=== PATIENT | female | born 1995 | race Two or more races ===

== ENCOUNTER 2019-05-30 00:36 | Emergency (ER) | payer OTHER ==
[2019-05-30 00:43] VITALS: BP 125/90
[2019-05-30 01:02] LABS: ABSOLUTE BASOPHILS # (AUTO) 0.1 10^3/uL (0.0-0.2); ABSOLUTE EOSINOPHILS # (AUTO) 0.3 10^3/uL (0.0-0.6); ABSOLUTE LYMPHOCYTES (AUTO) 5.6 10^3/uL (0.5-4.7); ABSOLUTE MONOCYTES (AUTO) 0.9 10^3/uL (0.1-1.4); ABSOLUTE NEUT (AUTO) 5.4 10^3/uL (1.7-8.2); BASOPHILS % (AUTO) 1.1 % (0-2); EOSINOPHILS % (AUTO) 2.4 % (0-6); HEMATOCRIT 38.4 % (36.0-47.0); HEMOGLOBIN 13.4 g/dL (12.0-15.5); LYMPHOCYTES % (AUTO) 45.3 % (13-45); MEAN CORPUSCULAR HEMOGLOBIN 27.9 pg (27.0-33.4); MEAN CORPUSCULAR HGB CONC 34.9 g/dL (32.0-36.0); MEAN CORPUSCULAR VOLUME 80 fl (80-97); PLATELET COUNT 437 10^3/uL (150-450); SEGMENTED NEUTROPHILS % (AUTO) 44.2 % (42-78); TOTAL CELLS COUNTED % (AUTO) 100 %; WHITE BLOOD COUNT 12.3 10^3/uL (4.0-10.5)
[2019-05-30 01:04] LABS: APPEARANCE,URINE CLEAR; BILIRUBIN,URINE NEGATIVE (NEGATIVE); COLOR,URINE YELLOW; GLUCOSE, URINE NEGATIVE (NEGATIVE); KETONES,URINE NEGATIVE (NEGATIVE); LEUKOCYTE ESTERASE,URINE NEGATIVE (NEGATIVE); NITRITE,URINE NEGATIVE (NEGATIVE); PROTEIN,URINE NEGATIVE (NEGATIVE); URINE SPECIFIC GRAVITY 1.018; UROBILINOGEN,URINE NEGATIVE mg/dL (<2.0)
[2019-05-30 01:25] LABS: ALBUMIN 5.2 g/dL (3.5-5.0); ALKALINE PHOSPHATASE 71 U/L (38-126); ANION GAP 16 (5-19); ASPARTATE AMINO TRANSFERASE 37 U/L (14-36); BILIRUBIN,DIRECT 0.1 mg/dL (0.0-0.4); BILIRUBIN,TOTAL 0.5 mg/dL (0.2-1.3); BLOOD UREA NITROGEN 15 mg/dL (7-20); CALCIUM 10.4 mg/dL (8.4-10.2); CARBON DIOXIDE 23 mmol/L (22-30); CHLORIDE 105 mmol/L (98-107); GLUCOSE 98 mg/dL (75-110); POTASSIUM 4.5 mmol/L (3.6-5.0); TOTAL PROTEIN 8.7 g/dL (6.3-8.2)
--- NOTE | 2019-05-30 03:16 | ER Document Report ---
ED GI/ - General Chief Complaint: Lower Abdominal Pain Stated Complaint: ABDOMINAL PAIN Time Seen by Provider: 05/30/19 03:15 Mode of Arrival: Ambulatory Information source: Patient - Related Data Allergies/Adverse Reactions: No Known Allergies Allergy (Unverified 05/30/19 00:36) Past Medical History - Social History Smoking Status: Unknown if Ever Smoked Patient has suicidal ideation: No Patient has homicidal ideation: No Physical Exam - Vital signs Vitals: Temp Pulse Resp BP Pulse Ox 98.1 F 128 H 20 125/90 H 100 05/30/19 00:41 05/30/19 00:41 05/30/19 00:41 05/30/19 00:41 05/30/19 00:41 Course - Vital Signs Vital signs: Temp Pulse Resp BP Pulse Ox 98.1 F 128 H 20 125/90 H 100 05/30/19 00:41 05/30/19 00:41 05/30/19 00:41 05/30/19 00:41 05/30/19 00:41 - Laboratory Result Diagrams: 05/30/19 00:48 05/30/19 00:48 Laboratory results interpreted by me: 05/30/19 05/30/19 05/30/19 00:48 00:48 00:48 WBC 12.3 H Lymph % (Auto) 45.3 H Absolute Lymphs (auto) 5.6 H Calcium 10.4 H AST 37 H Total Protein 8.7 H Albumin 5.2 H Urine Blood SMALL H Discharge - Discharge Disposition: ELOPED
--- NOTE | 2019-05-30 05:18 | ER Document Report ---
Doctor's Note Notes: 05/30/19 3267 Patient had eloped from the room prior to me seeing her and interviewing her.
== END 2019-05-30 03:24 | disposition left against medical advice (07) ==
LOC: ER 00:36
DX: Z53.21 Procedure and treatment not carried out due to patient leaving prior to being seen by health care provider (principal)
CPT/HCPCS: 36415; 80053; 81001; 81025; 83690; 85025; 99281

== ENCOUNTER 2019-06-30 22:03 | Emergency (ER) | payer OTHER ==
[2019-06-30 23:06] VITALS: BP 119/76
--- NOTE | 2019-06-30 23:37 | ER Document Report ---
ED Medical Screen (RME) - General Chief Complaint: Abdominal Pain Stated Complaint: ABDOMINAL PAIN Time Seen by Provider: 06/30/19 23:20 Mode of Arrival: Ambulatory Information source: Patient Notes: Otherwise healthy 23-year-old female presenting to the emergency department chief complaint of low abdominal pain and pelvic pain. Patient reports pain ongoing for 1 to 2 days. She does report some yellow vaginal discharge but she states that that has now resolved. Denies any fevers, nausea, vomiting, diarrhea or dysuria. Exam: Abdomen minimally tender with palpation. I have greeted and performed a rapid initial assessment of this patient. A comprehensive ED assessment and evaluation of the patient, analysis of test results and completion of the medical decision making process will be conducted by additional ED providers. I have specifically instructed the patient or family members with the patient to immediately return to any nursing staff should anything change in the patient's condition or with their chief complaint. TRAVEL OUTSIDE OF THE [place] IN LAST 30 DAYS: No - Related Data Allergies/Adverse Reactions: No Known Allergies Allergy (Verified 06/30/19 23:11) Home Medications: propranol/ busparin Past Medical History - Social History Chew tobacco use (# tins/day): No Frequency of alcohol use: Social Drug Abuse: None Physical Exam - Vital signs Vitals: Temp Pulse Resp BP Pulse Ox 99.0 F 102 H 20 119/76 99 06/30/19 22:22 06/30/19 22:22 06/30/19 22:22 06/30/19 22:22 06/30/19 22:22 Course - Vital Signs Vital signs: Temp Pulse Resp BP Pulse Ox 99.0 F 102 H 20 119/76 99 06/30/19 22:22 06/30/19 22:22 06/30/19 22:22 06/30/19 22:22 06/30/19 22:22 - Laboratory Result Diagrams: 06/30/19 23:43 06/30/19 23:43
[2019-07-01 00:01] LABS: ABSOLUTE BASOPHILS # (AUTO) 0.2 10^3/uL (0.0-0.2); ABSOLUTE EOSINOPHILS # (AUTO) 0.3 10^3/uL (0.0-0.6); ABSOLUTE LYMPHOCYTES (AUTO) 3.4 10^3/uL (0.5-4.7); ABSOLUTE MONOCYTES (AUTO) 0.7 10^3/uL (0.1-1.4); ABSOLUTE NEUT (AUTO) 6.9 10^3/uL (1.7-8.2); BASOPHILS % (AUTO) 1.4 % (0-2); EOSINOPHILS % (AUTO) 2.5 % (0-6); HEMATOCRIT 36.4 % (36.0-47.0); HEMOGLOBIN 12.9 g/dL (12.0-15.5); LYMPHOCYTES % (AUTO) 29.5 % (13-45); MEAN CORPUSCULAR HGB CONC 35.3 g/dL (32.0-36.0); MEAN CORPUSCULAR VOLUME 80 fl (80-97); MONOCYTES % (AUTO) 6.3 % (3-13); PLATELET COUNT 391 10^3/uL (150-450); RED BLOOD COUNT 4.59 10^6/uL (3.72-5.28); RED CELL DISTRIBUTION WIDTH 13.3 % (11.5-14.0); SEGMENTED NEUTROPHILS % (AUTO) 60.3 % (42-78); TOTAL CELLS COUNTED % (AUTO) 100 %; WHITE BLOOD COUNT 11.5 10^3/uL (4.0-10.5)
[2019-07-01 00:19] LABS: ALKALINE PHOSPHATASE 75 U/L (38-126); ANION GAP 15 (5-19); ASPARTATE AMINO TRANSFERASE 23 U/L (14-36); BILIRUBIN,DIRECT 0.2 mg/dL (0.0-0.4); BILIRUBIN,TOTAL 0.5 mg/dL (0.2-1.3); BLOOD UREA NITROGEN 11 mg/dL (7-20); CALCIUM 9.9 mg/dL (8.4-10.2); CARBON DIOXIDE 25 mmol/L (22-30); CHLORIDE 100 mmol/L (98-107); GLUCOSE 90 mg/dL (75-110); POTASSIUM 3.9 mmol/L (3.6-5.0); TOTAL PROTEIN 8.2 g/dL (6.3-8.2)
[2019-07-01 00:21] LABS: APPEARANCE,URINE SLIGHTLY-CLOUDY; BILIRUBIN,URINE NEGATIVE (NEGATIVE); COLOR,URINE YELLOW; GLUCOSE, URINE NEGATIVE (NEGATIVE); KETONES,URINE NEGATIVE (NEGATIVE); LEUKOCYTE ESTERASE,URINE NEGATIVE (NEGATIVE); NITRITE,URINE NEGATIVE (NEGATIVE); PROTEIN,URINE NEGATIVE (NEGATIVE); UROBILINOGEN,URINE NEGATIVE mg/dL (<2.0)
--- NOTE | 2019-07-01 00:43 | RADIOLOGY REPORT (SQ) ---
EXAM DESCRIPTION: US PELVIS TRANSVAGINAL COMPLETED DATE/TME: 06/30/2019 23:35 CLINICAL HISTORY: 23 years, Female, pelvic pain COMPARISON: None. TECHNIQUE: Transvaginal pelvic ultrasound with grayscale and color images. LIMITATIONS: None. FINDINGS: The uterus measures 8.8 x 4.7 x 3.8 cm. The endometrium is normal in thickness measuring 1 cm. The cervix measures 4 cm in length. Both ovaries demonstrate normal flow. The right ovary measures 2.4 x 2.1 x 2.2 cm. The left ovary measures 4.2 x 2.0 x 2.4 cm. There is a left ovarian hemorrhagic cyst that measures 2.8 x 1.6 x 1.5 cm. There is a mild amount of free fluid within the pelvis. IMPRESSION: Left ovarian hemorrhagic cyst. No evidence of ovarian torsion. Mild amount of free fluid within the pelvis. copyright 2010 [employer]- All Rights Reserved
[2019-07-01] MEDS ORDERED: KETOROLAC TROMETHAMINE INJ/PF 30 MG/1 ML SDV IM ONE (02:51)
--- NOTE | 2019-07-01 02:55 | ER Document Report ---
ED GI/ - General Chief Complaint: Abdominal Pain Stated Complaint: ABDOMINAL PAIN Time Seen by Provider: 06/30/19 23:20 Primary Care Provider: [facility] [Provider Group] - Follow up as needed COURT VAZQUEZ MD [EMERITUS] - Follow up as needed Mode of Arrival: Ambulatory Notes: 23-year-old female presented to ED for complaint lower abdominal/pelvic pain. She states is been going on for 1 to 2 days. She states she did have some yellow vaginal discharge but that is resolved now. She denies any fevers nausea vomiting diarrhea or any difficulty urinating. She states she did have an ovarian cyst last month during her menstrual cycle and she has 1 again. TRAVEL OUTSIDE OF THE [place] IN LAST 30 DAYS: No - HPI Patient complains to provider of: Pelvic pain, Vaginal discharge Onset: Other - 1 to 2 days Timing/Duration: Persistent Quality of pain: Sharp Severity at maximum: Moderate Severity in ED: Moderate Pain Level: 3 Location: Pelvis Vaginal bleeding (Compared to normal period): None Associated symptoms: Vaginal discharge - She states this is resolved, Other - Left pelvic pain Exacerbated by: Walking Relieved by: Denies Recently seen / treated by doctor: Yes - Related Data Allergies/Adverse Reactions: No Known Allergies Allergy (Verified 06/30/19 23:11) Home Medications: propranol/ busparin Past Medical History - General Information source: Patient - Social History Smoking Status: Never Smoker Chew tobacco use (# tins/day): No Frequency of alcohol use: Social Drug Abuse: None Lives with: Family Family History: Reviewed & Not Pertinent Patient has suicidal ideation: No Patient has homicidal ideation: No - Past Medical History Cardiac Medical History: Reports: None Pulmonary Medical History: Reports: None EENT Medical History: Reports: None Neurological Medical History: Reports: None Endocrine Medical History: Reports: None Renal/ Medical History: Reports: Hx Ovarian Cysts Malignancy Medical History: Reports: None GI Medical History: Reports: None Musculoskeletal Medical History: Reports None Skin Medical History: Reports None Psychiatric Medical History: Reports: None Traumatic Medical History: Reports: None Infectious Medical History: Reports: None Surgical Hx: Negative Past Surgical History: Reports: None - Immunizations Immunizations up to date: Yes Review of Systems - Review of Systems Constitutional: No symptoms reported EENT: No symptoms reported Cardiovascular: No symptoms reported Respiratory: No symptoms reported Gastrointestinal: No symptoms reported Genitourinary: No symptoms reported Female Genitourinary: Vaginal discharge, Other - Left pelvic pain Musculoskeletal: No symptoms reported Skin: No symptoms reported Hematologic/Lymphatic: No symptoms reported Neurological/Psychological: No symptoms reported Physical Exam - Vital signs Vitals: Temp Pulse Resp BP Pulse Ox 99.0 F 102 H 20 119/76 99 06/30/19 22:22 06/30/19 22:22 06/30/19 22:22 06/30/19 22:22 06/30/19 22:22 Interpretation: Normal - General General appearance: Appears well, Alert - HEENT Head: Normocephalic, Atraumatic Eyes: Normal Pupils: PERRL - Respiratory Respiratory status: No respiratory distress Chest status: Nontender Breath sounds: Normal Chest palpation: Normal - Cardiovascular Rhythm: Regular Heart sounds: Normal auscultation Murmur: No - Abdominal Inspection: Normal Distension: No distension Bowel sounds: Normal Tenderness: Tender - Left pelvic pain Organomegaly: No organomegaly - Genitourinary Notes: Patient refused pelvic exam stated she would go to her [facility] she did not want a pelvic exam in the emergency room. I explained to her with her yellow discharge reevaluation do pelvic exam and swabs. She states no she was not can have a pelvic exam in the emergency room and get into her [facility] and she will get that there. - Back Back: Normal, Nontender - Extremities General upper extremity: Normal inspection, Nontender, Normal color, Normal ROM, Normal temperature General lower extremity: Normal inspection, Nontender, Normal color, Normal ROM, Normal temperature, Normal weight bearing. No: Corwin's sign - Neurological Neuro grossly intact: Yes Cognition: Normal Orientation: AAOx4 [place] Coma Scale Eye Opening: Spontaneous [place] Coma Scale Verbal: Oriented Jonathan Coma Scale Motor: Obeys Commands Jonathan Coma Scale Total: 15 Speech: Normal Motor strength normal: LUE, RUE, LLE, RLE Sensory: Normal - Psychological Associated symptoms: Normal affect, Normal mood - Skin Skin Temperature: Warm Skin Moisture: Dry Skin Color: Normal Course - Re-evaluation Re-evalutation: 07/01/19 03:20 Patient refused pelvic exam even though she had vaginal discharge a couple days ago. She states the discharge is gone and she does not want a pelvic exam in the emergency room. She states all the pain is at the left ovary where her cyst is on the ultrasound. She refused multiple times to have a pelvic exam. She was treated with Toradol for her pain in her left ovarian cyst area. - Vital Signs Vital signs: Temp Pulse Resp BP Pulse Ox 99.0 F 102 H 20 119/76 99 06/30/19 22:22 06/30/19 22:22 06/30/19 22:22 06/30/19 22:22 06/30/19 22:22 - Laboratory Result Diagrams: 06/30/19 23:43 06/30/19 23:43 Laboratory results interpreted by me: 06/30/19 23:43 WBC 11.5 H - Diagnostic Test Radiology reviewed: Image reviewed, Reports reviewed Discharge - Discharge Clinical Impression: Pelvic pain, Left ovarian cyst Condition: Stable Disposition: HOME, SELF-CARE Additional Instructions: PELVIC PAIN: There are many causes of pain in the pelvic area. The cause could be the tubes, ovaries, uterus, intestines, appendix, pelvic muscles and connective tissue, or the urinary tract. The cause of your pelvic pain is not clear. However, it seems safe to treat you outside the hospital. If the pain sounds like a temporary problem, we sometimes wait to see if it goes away. Other patients may need additional tests, such as pelvic ultrasound or cultures. Conditions may change. Call us or come back for reexamination if any problems occur, such as: (1) Pain that becomes more severe, steady, or becomes concentrated in one specific area. Also, pain that is more severe with movement or coughing. (2) Vomiting that persists or becomes more frequent. (3) Blood in the vomitus, urine, or bowel movements. Blood in the stool may have a tarry or black appearance. (4) Shaking chills or fever greater than 100 degrees. (5) The abdomen becomes more distended or swollen. (6) Bowel movements cease. (7) Heavy vaginal bleeding. You have refused the pelvic exam and pelvic swabs for GC and chlamydia and wet mount. You stated you would follow-up with your [facility] within the next 24 to 48 hours to get the swabs as you did not want to have this done in the emergency room. Ovarian Cyst Your examination shows the presence of an ovarian cyst. This is a ball of fluid attached to the ovary. Ovarian cysts in women of child-bearing age are usually innocent. However, the cyst may cause pain when it grows or bursts. An innocent ovarian cyst will usually go away by itself. When the cyst becomes painful, you should rest. Pain medication may be required. Some women find a hot water bottle soothing. The pain usually resolves within one or two days. After menopause, an ovarian cyst may mean a tumor, and requires more aggressive evaluation -- usually surgery is recommended to remove or biopsy the cyst. A very large cyst requires evaluation at any age. Most cysts (even the innocent ones) require follow-up examination. Call the doctor or return at any time if the pain increases significantly, if you become faint, or if you experience vaginal bleeding. TORADOL INJECTION: You have been given an injection of ketorolac tromethamine (Toradol). This is an excellent, safe drug for pain control. It also has potent antiinflammatory action. You should have significant pain relief within about one hour. Toradol is not addicting and is non-sedating. It does not interfere with driving or work. Call or return if you develop itching, hives, shortness of breath, or rash. FOLLOW-UP CARE: If you have been referred to a physician for follow-up care, call the physici ans office for an appointment as you were instructed or within the next two days. If you experience worsening or a significant change in your symptoms, notify the physician immediately or return to the Emergency Department at any time for re-evaluation. Referrals: [facility] [Provider Group] - Follow up as needed COURT VAZQUEZ MD [EMERITUS] - Follow up as needed
== END 2019-07-01 03:49 | disposition home or self-care (01) ==
LOC: ER 22:03
DX: N83.202 Unspecified ovarian cyst, left side (principal); R10.2 Pelvic and perineal pain; Z79.899 Other long term (current) drug therapy
CPT/HCPCS: 99284; 96372; 36415; 84703; 85025; 80053; 81001; 76830; 93976; J1885

== ENCOUNTER 2019-12-08 00:52 | Emergency (ER) | payer OTHER ==
[2019-12-08] MEDS ORDERED: ONDANSETRON 4 MG TAB.RAPDIS PO ONE (01:05)
--- NOTE | 2019-12-08 01:06 | ER Document Report ---
ED Medical Screen (RME) - General Chief Complaint: Abdominal Pain Stated Complaint: ABDOMINAL PAIN Time Seen by Provider: 12/08/19 01:03 Mode of Arrival: Ambulatory Information source: Patient Notes: Otherwise healthy 24-year-old female presenting to the emergency department 2- day history of lower abdominal pain. Patient reports pain in the middle and left lower quadrants. She does have a history of ovarian cyst, states this feels similar. She states the pain is coming and going and has associated nausea without vomiting, diarrhea, fever, dysuria or abnormal vaginal discharge. No acute distress noted, tenderness to the left lower quadrant. I have greeted and performed a rapid initial assessment of this patient. A comprehensive ED assessment and evaluation of the patient, analysis of test results and completion of the medical decision making process will be conducted by additional ED providers. I have specifically instructed the patient or family members with the patient to immediately return to any nursing staff should anything change in the patient's condition or with their chief complaint. TRAVEL OUTSIDE OF THE [place] IN LAST 30 DAYS: No - Related Data Allergies/Adverse Reactions: No Known Allergies Allergy (Verified 06/30/19 23:11) Past Medical History Renal/ Medical History: Reports: Hx Ovarian Cysts - Immunizations Immunizations up to date: Yes Physical Exam - Vital signs Vitals: Temp Pulse Resp BP Pulse Ox 98.8 F 97 20 135/79 H 98 12/08/19 00:59 12/08/19 00:59 12/08/19 00:59 12/08/19 00:59 12/08/19 00:59 Course - Vital Signs Vital signs: Temp Pulse Resp BP Pulse Ox 98.8 F 97 20 135/79 H 98 12/08/19 01:02 12/08/19 00:59 12/08/19 00:59 12/08/19 00:59 12/08/19 00:59
[2019-12-08 01:26] LABS: ABSOLUTE BASOPHILS # (AUTO) 0.1 10^3/uL (0.0-0.2); ABSOLUTE EOSINOPHILS # (AUTO) 0.3 10^3/uL (0.0-0.6); ABSOLUTE LYMPHOCYTES (AUTO) 4.3 10^3/uL (0.5-4.7); ABSOLUTE NEUT (AUTO) 7.8 10^3/uL (1.7-8.2); BASOPHILS % (AUTO) 0.6 % (0-2); EOSINOPHILS % (AUTO) 2.3 % (0-6); HEMATOCRIT 35.6 % (36.0-47.0); HEMOGLOBIN 12.6 g/dL (12.0-15.5); LYMPHOCYTES % (AUTO) 32.1 % (13-45); MEAN CORPUSCULAR HEMOGLOBIN 28.2 pg (27.0-33.4); MEAN CORPUSCULAR HGB CONC 35.3 g/dL (32.0-36.0); MEAN CORPUSCULAR VOLUME 80 fl (80-97); MONOCYTES % (AUTO) 7.5 % (3-13); PLATELET COUNT 413 10^3/uL (150-450); RED BLOOD COUNT 4.45 10^6/uL (3.72-5.28); RED CELL DISTRIBUTION WIDTH 12.8 % (11.5-14.0); SEGMENTED NEUTROPHILS % (AUTO) 57.5 % (42-78); TOTAL CELLS COUNTED % (AUTO) 100 %; WHITE BLOOD COUNT 13.6 10^3/uL (4.0-10.5)
[2019-12-08 01:30] LABS: APPEARANCE,URINE CLEAR; BILIRUBIN,URINE NEGATIVE (NEGATIVE); COLOR,URINE COLORLESS; GLUCOSE, URINE NEGATIVE (NEGATIVE); KETONES,URINE NEGATIVE (NEGATIVE); LEUKOCYTE ESTERASE,URINE NEGATIVE (NEGATIVE); NITRITE,URINE NEGATIVE (NEGATIVE); PROTEIN,URINE NEGATIVE (NEGATIVE); URINE SPECIFIC GRAVITY 1.004; UROBILINOGEN,URINE NEGATIVE mg/dL (<2.0)
[2019-12-08 01:43] LABS: ALBUMIN 4.7 g/dL (3.5-5.0); ALKALINE PHOSPHATASE 71 U/L (38-126); ANION GAP 9 (5-19); ASPARTATE AMINO TRANSFERASE 24 U/L (14-36); BILIRUBIN,TOTAL 0.3 mg/dL (0.2-1.3); BLOOD UREA NITROGEN 13 mg/dL (7-20); CALCIUM 10.2 mg/dL (8.4-10.2); CARBON DIOXIDE 24 mmol/L (22-30); CHLORIDE 104 mmol/L (98-107); GLUCOSE 97 mg/dL (75-110); TOTAL PROTEIN 7.9 g/dL (6.3-8.2)
--- NOTE | 2019-12-08 02:09 | ER Document Report ---
ED GI/ - General Chief Complaint: Abdominal Pain Stated Complaint: ABDOMINAL PAIN Time Seen by Provider: 12/08/19 01:03 Mode of Arrival: Ambulatory Notes: Patient is a 24-year-old female who comes emergency department for chief complaint of left lower abdominal/pelvic pain. She states that for the past 3 days she has felt some intermittent pain but about 930 tonight she felt sharp throbbing pain which was significantly worse and she became concerned. She has been taking Advil for the pain with good results. She denies nausea, vomiting, vaginal bleeding or discharge, dysuria, flank pain, fever/chills, injury. She is sexually active with her . She denies concerns about STD. She states she has had ovarian cysts in the past including rupturing and hemorrhagic cysts and this feels similar. She denies any surgeries or daily medications at [facility] for anxiety. She denies any other medical history. TRAVEL OUTSIDE OF THE [place] IN LAST 30 DAYS: No - Related Data Allergies/Adverse Reactions: No Known Allergies Allergy (Verified 06/30/19 23:11) Past Medical History - General Information source: Patient - Social History Smoking Status: Current Every Day Smoker Family History: Reviewed & Not Pertinent Patient has homicidal ideation: No Renal/ Medical History: Reports: Hx Ovarian Cysts - Immunizations Immunizations up to date: Yes Review of Systems - Review of Systems Constitutional: No symptoms reported EENT: No symptoms reported Cardiovascular: No symptoms reported Respiratory: No symptoms reported Gastrointestinal: See HPI Genitourinary: No symptoms reported Female Genitourinary: See HPI Musculoskeletal: No symptoms reported Skin: No symptoms reported Hematologic/Lymphatic: No symptoms reported Neurological/Psychological: No symptoms reported Physical Exam - Vital signs Vitals: Temp Pulse Resp BP Pulse Ox 98.8 F 97 20 135/79 H 98 12/08/19 00:59 12/08/19 00:59 12/08/19 00:59 12/08/19 00:59 12/08/19 00:59 - Notes Notes: GENERAL: Alert, interacts well. No acute distress. HEAD: Normocephalic, atraumatic. EYES: Pupils equal, round, and reactive to light. Extraocular movements intact. ENT: Oral mucosa moist, tongue midline. Oropharynx unremarkable. Airway patent. LUNGS: Clear to auscultation bilaterally, no wheezes, rales, or rhonchi. No respiratory distress. Non-tender chest wall. HEART: Regular rate and rhythm. No murmur ABDOMEN: Soft, non-tender. Non-distended. Bowel sounds present in all 4 quadrants. GENITOURINARY: Deferred EXTREMITIES: Moves all 4 extremities spontaneously. No edema, normal radial and dorsalis pedis pulses bilaterally. No cyanosis. BACK: no cervical, thoracic, lumbar midline tenderness. No saddle anesthesia, normal distal neurovascular exam. Moves all extremities in full range of motion. NEUROLOGICAL: Alert and oriented x3. Normal speech. Cranial nerves II through XII grossly intact. Strength 5/5 in all extremities. PSYCH: Normal affect, normal mood. SKIN: Warm, dry, normal turgor. No rashes or lesions noted. Course - Re-evaluation Re-evalutation: Patient states now her pain which was sharp earlier has completely resolved. CBC unremarkable, chemistry unremarkable, urinalysis unremarkable, negative. Ultrasound from triage showing small amount of free fluid but no acute findings otherwise. Nils with patient. Based on her sharp pain which is now resolved, free fluid on ultrasound, negative work-up otherwise I feel it is likely that patient did have a ruptured ovarian cyst. She has no bleeding, abdominal pain, or any current symptoms. Patient is stable for discharge with follow-up with [facility]NIC[facility] which were discussed, discussed return precautions. Patient states understanding and agreement with plan. - Vital Signs Vital signs: Temp Pulse Resp BP Pulse Ox 98.3 F 88 14 112/73 98 12/08/19 02:27 12/08/19 02:27 12/08/19 02:27 12/08/19 02:27 12/08/19 02:27 - Laboratory Result Diagrams: 12/08/19 01:09 12/08/19 01:09 Laboratory results interpreted by me: 12/08/19 12/08/19 01:09 01:09 WBC 13.6 H Hct 35.6 L Sodium 136.9 L Discharge - Discharge Clinical Impression: Left lower quadrant pain Condition: Stable Disposition: HOME, SELF-CARE Additional Instructions: Your ultrasound does show some free fluid, I suspect that you have ruptured an ovarian cyst. Symptoms from this should simply resolve. You can take 600 mg of ibuprofen/Advil along with 1000 mg of Tylenol every 6 hours if needed for the pain. Follow-up with [facility]NIC[facility] referral routinely. Return if you worsen including severe worsening pain, vomiting, fever, or any other concerning symptoms. Forms: Return to Work Referrals: [facility] [Provider Group] - Follow up as needed
--- NOTE | 2019-12-08 02:11 | RADIOLOGY REPORT (SQ) ---
EXAM DESCRIPTION: US PELVIS TRANSVAGINAL COMPLETED DATE/TME: 12/08/2019 01:05 CLINICAL HISTORY: 24 years Female, eval for ovarian cysts Comparison:Jul 01 2019 Technique: Transvaginal. LIMITATIONS: None. FINDINGS: 7-cm uterus, 0.6-cm endometrial stripe thickness, 3-cm right ovary, and 3-cm left ovary appear normal in size, shape, echotexture, and vascularity. Small free pelvic fluid. IMPRESSION: Small free fluid. Else, unremarkable.
[2019-12-08 02:29] VITALS: BP 112/73
== END 2019-12-08 02:29 | disposition home or self-care (01) ==
LOC: ER 00:52
DX: R10.32 Left lower quadrant pain (principal); R10.2 Pelvic and perineal pain; Z79.899 Other long term (current) drug therapy; F17.200 Nicotine dependence, unspecified, uncomplicated
CPT/HCPCS: 99284; 36415; 83690; 85025; 81025; 80053; 81001; 76830; 93976; S0119

== ENCOUNTER 2020-02-21 17:41 | Emergency (ER) | payer OTHER ==
[2020-02-21] MEDS ORDERED: ACETAMINOPHEN 325 MG TABLET PO ONE (17:56)
--- NOTE | 2020-02-21 17:58 | ER Document Report ---
ED Medical Screen (RME) - General Chief Complaint: Abdominal Pain Stated Complaint: ABDOMINAL PAIN/ Time Seen by Provider: 02/21/20 17:52 Mode of Arrival: Ambulatory Information source: Patient Notes: HPI; 24-year-old female 2 para 1 presents to the emergency room complaining of abdominal pain that started earlier today. Patient states did a home test 3 days ago that was positive. Denies any care. Denies nausea, vomiting, no medications. Denies any vaginal bleeding. Vaginal discharge. PE: Alert and oriented x3. Lungs: Clear to auscultation without rales, rhonchi, wheezes. Heart: Regular rate and rhythm without murmurs, rubs, gallops. I have greeted and performed a rapid initial assessment of this patient. A comprehensive ED assessment and evaluation of the patient, analysis of test results and completion of the medical decision making process will be conducted by additional ED providers. I have specifically instructed the patient or f amily members with the patient to immediately return to any nursing staff should anything change in the patient's condition or with their chief complaint. TRAVEL OUTSIDE OF THE [place] IN LAST 30 DAYS: No - Related Data Allergies/Adverse Reactions: No Known Allergies Allergy (Verified 02/21/20 17:54) Past Medical History Renal/ Medical History: Reports: Hx Ovarian Cysts - Immunizations Immunizations up to date: Yes
[2020-02-21 18:22] LABS: ABSOLUTE EOSINOPHILS # (AUTO) 0.3 10^3/uL (0.0-0.6); HEMOGLOBIN 12.8 g/dL (12.0-15.5); TOTAL CELLS COUNTED % (AUTO) 100 %
[2020-02-21 18:26] LABS: ABSOLUTE BASOPHILS # (AUTO) 0.1 10^3/uL (0.0-0.2); ABSOLUTE LYMPHOCYTES (AUTO) 3.6 10^3/uL (0.5-4.7); ABSOLUTE NEUT (AUTO) 6.9 10^3/uL (1.7-8.2); BASOPHILS % (AUTO) 1.2 % (0-2); EOSINOPHILS % (AUTO) 2.8 % (0-6); MEAN CORPUSCULAR HEMOGLOBIN 27.9 pg (27.0-33.4); MEAN CORPUSCULAR HGB CONC 35.4 g/dL (32.0-36.0); MEAN CORPUSCULAR VOLUME 79 fl (80-97); MONOCYTES % (AUTO) 8.3 % (3-13); PLATELET COUNT 419 10^3/uL (150-450); RED BLOOD COUNT 4.58 10^6/uL (3.72-5.28); RED CELL DISTRIBUTION WIDTH 13.4 % (11.5-14.0); SEGMENTED NEUTROPHILS % (AUTO) 57.7 % (42-78); WHITE BLOOD COUNT 11.9 10^3/uL (4.0-10.5)
[2020-02-21 18:28] LABS: APPEARANCE,URINE CLEAR; BILIRUBIN,URINE NEGATIVE (NEGATIVE); COLOR,URINE STRAW; GLUCOSE, URINE NEGATIVE (NEGATIVE); KETONES,URINE NEGATIVE (NEGATIVE); LEUKOCYTE ESTERASE,URINE NEGATIVE (NEGATIVE); NITRITE,URINE NEGATIVE (NEGATIVE); PROTEIN,URINE NEGATIVE (NEGATIVE); URINE SPECIFIC GRAVITY 1.009; UROBILINOGEN,URINE NEGATIVE mg/dL (<2.0)
[2020-02-21 18:42] LABS: ALBUMIN 4.9 g/dL (3.5-5.0); ALKALINE PHOSPHATASE 63 U/L (38-126); ANION GAP 10 (5-19); ASPARTATE AMINO TRANSFERASE 22 U/L (14-36); BILIRUBIN,TOTAL 0.5 mg/dL (0.2-1.3); BLOOD UREA NITROGEN 12 mg/dL (7-20); CALCIUM 10.1 mg/dL (8.4-10.2); CARBON DIOXIDE 26 mmol/L (22-30); CHLORIDE 101 mmol/L (98-107); GLUCOSE 94 mg/dL (75-110); POTASSIUM 4.1 mmol/L (3.6-5.0); TOTAL PROTEIN 8.2 g/dL (6.3-8.2)
--- NOTE | 2020-02-21 19:27 | RADIOLOGY REPORT (SQ) ---
EXAM DESCRIPTION: U/S OB TRANSVAG W/DOPPLER IMAGES COMPLETED DATE/TIME: 02/21/2020 6:59 pm REASON FOR STUDY: abdominal pain COMPARISON: None. TECHNIQUE: Transvaginal static and realtime grayscale images acquired of the pelvis. Additional yonatan cted spectral and color Doppler images recorded. All images stored on PACs. CLINICAL AGE: 7 weeks bHCG: Pending. LIMITATIONS: None. FINDINGS: UTERUS: No masses. No anomalies. GESTATIONAL SAC: 3 mm. YOLK SAC: No. POLE: None present. RIGHT ADNEXA: Normal ovary with normal vascular flow. No adnexal free fluid. No adnexal masses. LEFT ADNEXA: Normal ovary with normal vascular flow. No adnexal free fluid. No adnexal masses. FREE FLUID: Small amount of cul-de-sac free fluid. OTHER: No other significant finding. IMPRESSION: POSSIBLE EARLY INTRAUTERINE . CONSIDER F/U BHCG AND/OR ULTRASOUND FOR VERIFICATION AND TO EXCLUDE ECTOPIC . Trimester of : First trimester - 0 to 13 weeks. TECHNICAL DOCUMENTATION: JOB ID: [id number] [id number] 2010 [employer]- All Rights Reserved Reading location - IP/workstation name: [email or web address]
--- NOTE | 2020-02-21 21:38 | ER Document Report ---
ED GI/ - General Chief Complaint: Lower Abdominal Pain Stated Complaint: ABDOMINAL PAIN/ Time Seen by Provider: 02/21/20 17:52 Mode of Arrival: Ambulatory Notes: 24-year-old female presents to the emergency department with a complaint of crampy lower abdominal discomfort. She states that she did a test at home and found that it was positive. Repeated test 8 more times each 1+. Come to the hospital for evaluation and to determine whether she is really . Lab testing quantitative hCG qualitative hCG and ultrasound were ordered as a part of the triage process. Patient is in no acute distress and is very well cramping which occurred this morning. TRAVEL OUTSIDE OF THE [place] IN LAST 30 DAYS: No - Related Data Allergies/Adverse Reactions: No Known Allergies Allergy (Verified 02/21/20 17:54) Home Medications: buspar Past Medical History - General Information source: Patient - Social History Smoking Status: Never Smoker Chew tobacco use (# tins/day): No Frequency of alcohol use: None Drug Abuse: None Family History: Reviewed & Not Pertinent Patient has homicidal ideation: No Renal/ Medical History: Reports: Hx Ovarian Cysts - Immunizations Immunizations up to date: Yes Review of Systems - Review of Systems Notes: Constitutional: Negative for fever. HENT: Negative for sore throat. Eyes: Negative for visual changes. Cardiovascular: Negative for chest pain. Respiratory: Negative for shortness of breath. Gastrointestinal: Negative for abdominal pain, vomiting or diarrhea. Genitourinary: Negative for dysuria. Musculoskeletal: Negative for back pain. Skin: Negative for rash. Neurological: Negative for headaches, weakness or numbness. 10 point ROS negative except as marked above and in HPI. Physical Exam - Vital signs Vitals: Temp Pulse Resp BP Pulse Ox 98.9 F 89 16 138/90 H 100 02/21/20 17:51 02/21/20 17:51 02/21/20 17:51 02/21/20 17:51 02/21/20 17:51 - Notes Notes: PHYSICAL EXAMINATION: Physical Exam: General: Well-nourished well-developed in no acute distress HEENT: NC/AT, pupils equal round and reactive to light, MM moist,nares clear, oropharynx clear, airway patent Neck: supple, no adenopathy, no masses. Good range of motion Lungs: clear, no wheezing, no rales no rhonchi CVS: Regular rate and rhythm no murmur gallop or rub Abdomen: Soft, active, nontender, no masses, no hepatosplenomegaly Ext: No edema, clubbing or cyanosis. : Mild lower pelvic cramping Neuro: No focal neurologic findings. Course - Re-evaluation Re-evalutation: 02/21/20 23:21 Discussed the findings of the labs and ultrasound with the patient explained that she has a very early based on the hCG and ultrasound findings. I have encouraged her to begin vitamins and to follow-up with LIVE IN CAREGIVER. Tom brown states that she is already [facility] for an appointment. - Vital Signs Vital signs: Temp Pulse Resp BP Pulse Ox 98.3 F 87 16 129/73 H 99 02/21/20 22:01 02/21/20 22:01 02/21/20 22:01 02/21/20 22:01 02/21/20 22:01 - Laboratory Result Diagrams: 02/21/20 18:15 02/21/20 18:15 Laboratory results interpreted by me: 02/21/20 02/21/20 02/21/20 18:15 18:15 18:15 WBC 11.9 H MCV 79 L Sodium 136.5 L Serum HCG, Qual POSITIVE H Beta HCG, Quant 02/21/20 18:15 WBC MCV Sodium Serum HCG, Qual Beta HCG, Quant 133.93 H 02/21/20 23:17 I have reviewed laboratory data and used this information for the treatment decisions regarding the patient. - Diagnostic Test Radiology reviewed: Image reviewed, Reports reviewed Radiology results interpreted by me: 02/21/20 23:17 OB ultrasound: 3 millimeter sac intrauterine may represent early . overies are normal Discharge - Discharge Clinical Impression: Early stage of Condition: Good Disposition: HOME, SELF-CARE Instructions: Pelvic Pain in ([facility]), ([facility]) Additional Instructions: You were seen in the emergency department with cramping abdominal discomfort. You were also found to be in the very early stages of . It is likely that your discomfort is implantation pain which has been noted to happen in early . The ultrasound shows an intrauterine gestational sac, while this does not 100% eliminate the possibilities of an ectopic , it makes it very unlikely. You may use Tylenol for pain, begin your vitamins and follow-up with an [facility] IN CAREGIVER for care. If you are having further symptoms or other concerns you may return to the em ergency department for further evaluation and treatment. HOME CARE INSTRUCTIONS & INFORMATION: Thank you for choosing us for your medical needs. We hope you're satisfied with the care you received. After you leave, you must properly care for your problem and, at the same time, observe its progress. Any condition can change. Some illnesses can change rapidly over hours or days. If your condition worsens, return to the Emergency Department or see your physician promptly. ABOUT YOUR X-RAYS AND EKG'S: If you had an EKG or X-rays taken, they have been read by the Emergency Physician. The X-rays and EKG's will also be read by a Radiologist or Hat Band Attacher within 24 hours. If discrepancies are noted, you will be notified by telephone. Please be certain the ED has a correct telephone number & address where you can be reached. Also, realize that some fractures or abnormalities do not show up on initial X-rays. If your symptoms continue, see your physician. ABOUT YOUR LABORATORY TEST: If you had laboratory tests, the results have been reviewed by the Emergency Physician. Some test results (for example cultures) may not be available for several days. You will be contacted if any test result shows you need additional treatment. Please be certain the ED has a correct telephone number and address where you can be reached. ABOUT YOUR MEDICATIONS: You will receive instructions on how to take your medicine on the prescription label you receive. Additional information may be provided by the Pharmacy. If you have questions afterwards, call the ED for clarification or further instructions. Some prescribed medications may cause drowsiness. Do not perform tasks such as driving a car or operating machinery without consulting your Pharmacist. If you feel you need a refill of pain medication, your condition will need re-evaluation. Please do not call for a refill of any medication. ABOUT YOUR SIGNATURE: Signature of this document acknowledges to followin. Understanding that you received emergency treatment and that you may be released before al medical problems are known or treated. Please be certain the ED has a correct phone number & address where you can be reached. 2. Acknowledgement that you will arrange for follow-up care as recommended. 3. Authorization for the Emergency Physician to provide information to your follow-up Physician in order to maximize your care. AT ANY TIME, IF YOUR SYMPTOMS CHANGE SIGNIFICANTLY OR WORSEN OR YOU DEVELOP NEW SYMPTOMS, RETURN TO THE EMERGENCY DEPARTMENT IMMEDIATELY FOR RE-EVALUATION. OUR GOAL IS TO PROVIDE EXCELLENT MEDICAL CARE! WE HOPE THAT WE HAVE MET YOUR EXPECTATIONS DURING YOUR EMERGENCY DEPARTMENT VISIT AND THAT YOU FEEL YOU HAVE RECEIVED EXCELLENT CARE!
[2020-02-21 22:02] VITALS: BP 129/73
== END 2020-02-21 22:03 | disposition home or self-care (01) ==
LOC: ER 17:41
DX: O26.899 Other specified pregnancy related conditions, unspecified trimester (principal); R10.2 Pelvic and perineal pain; Z3A.00 Weeks of gestation of pregnancy not specified; Z79.899 Other long term (current) drug therapy
CPT/HCPCS: 36415; 76817; 80053; 81001; 84702; 84703; 85025; 93976; 99284

== ENCOUNTER 2020-06-16 10:13 | Emergency (ER) | payer OTHER ==
[2020-06-16] MEDS ORDERED: LIDOCAINE 1% INJ-PF (10 MG/ML) 30 ML SDV INJ ONE (10:53)
--- NOTE | 2020-06-16 10:56 | ER Document Report ---
ED General - General Chief Complaint: Laceration Stated Complaint: LACERATION/LEFT INDEX FINGER Time Seen by Provider: 06/16/20 10:32 Primary Care Provider: NAI BURNETT MD [ACTIVE STAFF] - Follow up as needed Notes: HPI: 24-year-old female closing her left hand mostly left index finger in the door. Laceration to the volar aspect. Tetanus up-to-date. Patient is . She denies injury to any other location. ROS: See HPI Reviewed vital signs and nursing note as charted by RN. PHYSICAL EXAM: CONSTITUTIONAL: Alert and oriented and responds appropriately to questions. Well-appearing; well-nourished HEAD: Normocephalic; atraumatic ABD/GI: Normal bowel sounds; gravid consistent with dates BACK: The back appears normal and is non-tender to palpation EXT: Patient has a laceration to the volar aspect at the DIP joint of left index finger. Neurovascular intact distally with excellent capillary refill with sensation intact to light touch. Flexion strength testing limited currently secondary to pain. I will check it after the anastomosis. I have consented the patient for imaging with shielding of the abdomen of the left finger to evaluate the possibility of an open fracture. Patient has no allergies. TRAVEL OUTSIDE OF THE [place] IN LAST 30 DAYS: No - Related Data Allergies/Adverse Reactions: No Known Allergies Allergy (Verified 06/16/20 11:26) Home Medications: vitamins Past Medical History - Social History Smoking Status: Never Smoker Chew tobacco use (# tins/day): No Frequency of alcohol use: None Drug Abuse: None Family History: Reviewed & Not Pertinent Renal/ Medical History: Reports: Hx Ovarian Cysts - Immunizations Immunizations up to date: Yes Physical Exam - Vital signs Vitals: Pulse Resp BP Pulse Ox 99 20 122/90 H 99 06/16/20 10:24 06/16/20 10:24 06/16/20 10:24 06/16/20 10:24 Course - Re-evaluation Re-evalutation: Given the above history and physical, we did perform an x-ray of the finger showing a fracture as recorded. No other fractures noted to any other digits. I did use lidocaine without epinephrine and performed a digital block of the left index finger. Complicated suture with flaps present. 3 sutures were placed. I did check the patient's flexion and extension strength and I do not detect any overt weakness. I did call and speak directly to the orthopedic surgeon he did agree with Keflex and outpatient follow-up and splinting. Bacitracin has been applied to the wound. I did check/supervise the patient splint placement the patient is ne urovascularly intact after splint. - Vital Signs Vital signs: Temp Pulse Resp BP Pulse Ox 99 20 122/90 H 99 06/16/20 10:24 06/16/20 10:24 06/16/20 10:24 06/16/20 10:24 - Laboratory Results Critical Laboratory Results Reviewed: No Critical Results - Radiology Results Critical Radiology Results Reviewed: No Critical Results Procedures - Laceration/Wound Repair Left Finger Wound length (cm): 1.5 Wound's Depth, Shape: Irregular Laceration pre-procedure: Betadine prep applied Anesthetic type: 1% Lidocaine Volume Anesthetic (mLs): 8 Irrigated w/ Saline (mLs): 1,000 Wound Debrided: Minimal Wound Repaired With: Sutures Suture Size/Type: 4:0 Number of Sutures: 3 Layer Closure?: No Post-procedure wound care: Splint applied Post-procedure NV exam normal: Yes Complications: No Discharge - Discharge Clinical Impression: Fracture of finger, left, open Qualifiers: Encounter type: initial encounter Finger: index finger Phalanx: distal Fracture alignment: nondisplaced Qualified Code(s): S62.661B - Nondisplaced fracture of distal phalanx of left index finger, initial encounter for open fracture Condition: Good Disposition: HOME, SELF-CARE Additional Instructions: Come back immediately for any increased pain, swelling, fever, discoloration of the finger fingertip, or any other acute problems. You may apply bacitracin ointment to the wound twice daily until healing. The suture should be removed in around 10 days. Please take the antibiotics as prescribed. Please make sure that you follow-up with the orthopedic surgeon as discussed. Prescriptions: Cephalexin Monohydrate [Keflex 500 mg Capsule] 500 mg PO TID 7 Days #21 capsule Referrals: NAI BURNETT MD [ACTIVE STAFF] - Follow up as needed
--- NOTE | 2020-06-16 11:32 | RADIOLOGY REPORT (SQ) ---
EXAM DESCRIPTION: HAND LEFT 3 VIEWS IMAGES COMPLETED DATE/TIME: 06/16/2020 11:21 am REASON FOR STUDY: 15; index and middle finger; Shield abdome; pregna COMPARISON: None. EXAM PARAMETERS: NUMBER OF VIEWS: Three views. TECHNIQUE: AP, lateral and oblique radiographic images acquired of the left hand. LIMITATIONS: None. FINDINGS: MINERALIZATION: Normal. BONES: Acute angulated transversely oriented fracture of the 2nd middle phalanx. There is no associa angie dislocation of the IP joints. JOINTS: The normal carpal alignment is preserved. SOFT TISSUES: Soft tissue swelling around the fractured 2nd middle phalanx. OTHER: No other findings. IMPRESSION: Acute angulated transversely oriented fracture of the 2nd middle phalanx. TECHNICAL DOCUMENTATION: JOB ID: [id number] 2010 [employer]- All Rights Reserved Reading location - IP/workstation name: [email or web address]
[2020-06-16] MEDS ORDERED: PROMETHAZINE HCL 25 MG TABLET PO ONE (12:25)
[2020-06-16] MEDS ORDERED: CEPHALEXIN 500 MG CAPSULE PO ONE (12:25)
--- NOTE | 2020-06-16 13:08 | RADIOLOGY REPORT (SQ) ---
EXAM DESCRIPTION: FINGER LEFT IMAGES COMPLETED DATE/TIME: 06/16/2020 12:50 pm REASON FOR STUDY: 15; s/p suture and splint COMPARISON: None. NUMBER OF VIEWS: Three views. TECHNIQUE: AP, lateral, and oblique images acquired of the left second finger. LIMITATIONS: None. FINDINGS: MINERALIZATION: Normal. BONES: Acute transversely oriented angulated of the 2nd middle phalanx. The alignment of the fractur e is unchanged after placement of a splint. SOFT TISSUES: No radiopaque foreign body. OTHER: No other findings. IMPRESSION: Acute transversely oriented angulated of the 2nd middle phalanx. The alignment of the fr acture is unchanged after placement of a splint. TECHNICAL DOCUMENTATION: JOB ID: [id number] 2010 [employer]- All Rights Reserved Reading location - IP/workstation name: [email or web address]
[2020-06-16 13:37] VITALS: BP 125/88
== END 2020-06-16 13:37 | disposition home or self-care (01) ==
LOC: ER 10:13
DX: S62.661B Nondisplaced fracture of distal phalanx of left index finger, initial encounter for open fracture (principal); W22.8XXA Striking against or struck by other objects, initial encounter
CPT/HCPCS: 99283; 73140; 73130; 12041; J3490